=== PATIENT | male | born 1985 | race Caucasian/White ===

== ENCOUNTER 2021-08-04 00:50 | Observation (INO) ==
[2021-08-04] MEDS ORDERED: SODIUM CHLORIDE 0.9% 1000ML 1,000 ML IV STA (01:07)
[2021-08-04] MEDS ORDERED: KETOROLAC TROMETHAMINE 15 MG/ML VIAL IV STA (01:07)
[2021-08-04] MEDS ORDERED: ONDANSETRON INJ 2 MG/ML 2 ML VIAL IV STA (01:07)
[2021-08-04] MEDS ORDERED: MoRPHine SULFATE 4 MG/ML 1 ML CARP\\VIAL IV STA ×2 (01:07→02:34)
--- NOTE | 2021-08-04 01:15 | Emergency Department Note ---
Impression & Plan Acute appendicitis Evaluation by general surgery for further care ED Provider Note NAME: CYNDI EDMONDS AGE: 35 SEX: M ARRIVES VIA: Walk-In INFORMANT: Patient ED PROVIDER(S): Yaneth Barahona DO CHIEF COMPLAINT: Right-sided abdominal pain PLAN: Disposition: Further inpatient care with Dr. Callahan Condition: Stable MEDICAL DECISION MAKING: This is a 35-year-old male patient who presents to the emergency department with sudden onset of right-sided abdominal pain around 10 PM this evening. Patient required multiple doses of IV analgesia to maintain pain control. Urinalysis was unremarkable. Patient went for CT scan of the abdomen/pelvis which showed evidence of retrocolic appendicitis. I discussed the case with general surgery and they will evaluate for further management. Triage Nursing notes reviewed and agree with them. Vital Signs: reviewed and unremarkable Differential diagnosis: Testicular torsion, appendicitis, ruptured appendix, ureteral colic, pyelonephritis ER treatment provided: IV Zofran IV normal saline IV morphine x2 IV Toradol Diagnostics interpreted by me: Cardiac Monitoring: None Laboratory studies: See below Imaging studies: As per stat rad CT ABDOMEN & PELVIS Without Contrast: There is a retrocolic appendix which is distended up to 13 mm and shows inflammatory change in the surrounding fat. The findings are consistent with acute appendicitis. There are mildly prominent right mesenteric lymph nodes. No abnormal fluid. Small bilateral nonobstructing renal calculi. No hydronephrosis. No evidence of obstructing ureteral calculus. HPI: 35/M arrives for evaluation of right-sided abdominal pain. The patient developed sudden onset of right-sided abdominal pain and nausea around 10 PM this evening. He then developed some chills. The pain intensified. Patient states he has had a history of a kidney stone approximately 10 years ago. Patient is unsure what this pain could be related to. ROS: See above HPI for pertinent positives & negatives. A total of 10 systems reviewed and were otherwise negative. PAST MEDICAL HISTORY:See Below PAST SURGICAL HISTORY:None FAMILY HISTORY:See Below SOCIAL HISTORY:Patient lives with his family and works; he does not smoke HOME MEDICATIONS:Fluoxetine ALLERGIES:None VITALS:See Below PHYSICAL EXAMINATION: HEENT: Head - normocephalic and atraumatic. Pupils are equal, round, and reactive to light. Extraocular eye muscles are intact, and sclera are anicteric. Nose - moist nasal mucosa without discharge. Mouth - moist buccal mucosa. Oropharynx is nonerythematous and there is no tonsillar exudate or edema noted. Neck: Supple; no cervical lymphadenopathy Heart: Regular rate and rhythm. There is a normal S1 and S2 with no murmurs, clicks, or gallops appreciated. Lungs: Clear to auscultation bilaterally with no wheezes, rales, or rhonchi. Abdomen: Soft, moderate tenderness to palpation over the right upper and lower quadrants of the abdomen including the right CVA. The abdomen is nondistended with good bowel sounds. There are no palpable pulsatile masses or hepatosplenomegaly. There is no guarding, rigidity, or rebound noted. Extremities: No evidence of cyanosis, clubbing, or edema. There are easily palpable peripheral pulses. Skin: Pale, warm and dry with good turgor and no rashes. ED COURSE: Times/Reassessments: 0100 the patient was evaluated in room A10. A complete history and physical was performed. An IV lock was initiated and labs were drawn as above. A urine specimen was obtained and was dipped positive for only protein. The patient was given a liter of normal saline solution wide open along with 4 mg of IV Zofran, 30 mg of IV Toradol, and 4 mg of IV morphine. He will go for CT scan of the abdomen/pelvis. The patient was started on IV normal saline solution. Upon returning from radiology, the patient had recurrence of his right lower quadrant and right CVA pain. He was given a second dose of IV morphine. I reviewed the results of the CT scan and laboratory studies with the patient. I discussed the case with general surgery and they will evaluate for further management. Yaneth Barahona DO Past Med/Surg History Social History Smoking Status: Never smoker Preferred Language: Slovak Feels Safe at Home: Yes Allergies Allergies Allergy/AdvReac Type Severity Reaction Status Date / Time No Known Allergies Allergy Unverified 08/04/21 02:34 Home Meds Home Medications Medication Instructions Recorded Confirmed Al hyd-Mg tr-alg ac-sod bicarb 80 3 tab PO DIRECTED PRN 08/04/21 08/04/21 mg-20 mg chewable tablet acetaminophen 325 mg tablet 650 mg PO QID PRN 08/04/21 08/04/21 (Tylenol) fluvoxamine 150 mg 300 mg PO HS 08/04/21 08/04/21 capsule,extended release 24 hr Results & Data (ED) Vital Signs Vital Signs - 24 hr 08/04/21 00:53 08/04/21 01:41 08/04/21 02:58 Temperature 36.5 C Temperature Source Temporal Artery Scan Pulse Rate 98 H Pulse Rate [Left Radial] 98 H 82 Respiratory Rate 20 16 16 Respiratory Effort / Characteristics Non-Labored Non-Labored Respiratory Depth Normal Normal Normal Blood Pressure 109/71 Blood Pressure [Left Arm] 118/68 113/67 Blood Pressure Mean 83 Blood Pressure Mean [Left Arm] 84 82 Blood Pressure Position [Left Arm] Lying Pulse Oximetry 97 93 96 Oxygen Delivery Method Room Air Room Air Room Air Sepsis Recent Fever Within 48 Hours No Sepsis New/Unexplained Change in Mental Status N/A Sepsis Action Taken by Nursing No Action Required 08/04/21 03:38 08/04/21 04:29 Temperature Temperature Source Pulse Rate Pulse Rate [Left Radial] 77 Respiratory Rate 18 Respiratory Effort / Characteristics Respiratory Depth Blood Pressure Blood Pressure [Left Arm] 124/71 Blood Pressure Mean Blood Pressure Mean [Left Arm] 88 Blood Pressure Position [Left Arm] Pulse Oximetry 94 97 Oxygen Delivery Method Room Air Room Air Sepsis Recent Fever Within 48 Hours Sepsis New/Unexplained Change in Mental Status Sepsis Action Taken by Nursing Laboratory Data Result diagrams: 08/04/21 01:11 08/04/21 01:11 Lab Results 08/04/21 08/04/21 08/04/21 Range/Units 01:05 01:11 01:11 WBC 13.32 H (4.8-10.8) K/uL RBC 5.09 (4.7-6.1) M/uL Hgb 14.8 (14.0-18.0) g/dL Hct 42.6 (42-52) % MCV 83.7 (80-100) fL MCH 29.1 (25-34) pg MCHC 34.7 (32-36) g/dL RDW Std Deviation 37.7 (36.4-46.3) fL RDW Coeff of Nathan 12.4 (11.5-14.5) % Plt Count 175 (130-400) K/uL MPV 10.5 H (7.4-10.4) fL Immature Gran % (Auto) 0.1 % Neut % (Auto) 75.1 % Lymph % (Auto) 15.5 % [place] % (Auto) 8.2 % Eos % (Auto) 0.9 % Baso % (Auto) 0.2 % Neut # (Auto) 10.02 H (1.4-6.5) K/uL Lymph # (Auto) 2.06 (1.2-3.4) K/uL [place] # (Auto) 1.09 H (0.11-0.59) K/uL Eos # (Auto) 0.12 (0-0.5) K/uL Baso # (Auto) 0.02 (0-0.2) K/uL Immature Gran # (Auto) 0.01 (0.00-0.02) K/uL Sodium 137 (136-145) mmol/L Potassium 3.2 L (3.5-5.1) mmol/L Chloride 101 (98-107) mmol/L Carbon Dioxide 25 (21-32) mmol/L Anion Gap 11 (3-11) BUN 17 (6-23) mg/dl Creatinine 0.99 (0.6-1.4) mg/dl Est Cr Clr Drug Dosing 115.4 ml/min Est GFR ( Amer) 114.7 ml/min Est GFR (Non-Af Amer) 99.0 ml/min BUN/Creatinine Ratio 17.2 (10-20) Glucose 115 H (70-99(Fasting)) mg/dl Calcium 10.3 H (8.5-10.1) mg/dl Total Bilirubin 0.6 (0.2-1.0) mg/dl AST 17 (13-39) U/L ALT 29 (7-52) U/L Alkaline Phosphatase 95 (34-104) U/L Total Protein 7.5 (6.0-8.3) gm/dl Albumin 4.7 (3.4-5.0) gm/dl Globulin 2.8 (2.5-4.0) gm/dl Albumin/Globulin Ratio 1.7 (0.9-2) Lipase 40 (11-82) U/L Urine Color Yellow Urine Appearance Clear (Clear) Urine pH 5.0 (4.5-7.5) Ur Specific [place] 1.020 (1.000-1.030) Urine Protein Negative (Negative) Urine Glucose (UA) Negative (Negative) Urine Ketones Negative (Negative) Urine Blood Negative (Negative) Urine Nitrite Negative (Negative) Urine Bilirubin Negative (Negative) Urine Urobilinogen Negative (Negative) Ur Leukocyte Esterase Negative (Negative) SARS-CoV-2, RNA, NAAT (NEGATIVE) 08/04/21 Range/Units 03:50 WBC (4.8-10.8) K/uL RBC (4.7-6.1) M/uL Hgb (14.0-18.0) g/dL Hct (42-52) % MCV (80-100) fL MCH (25-34) pg MCHC (32-36) g/dL RDW Std Deviation (36.4-46.3) fL RDW Coeff of Nathan (11.5-14.5) % Plt Count (130-400) K/uL MPV (7.4-10.4) fL Immature Gran % (Auto) % Neut % (Auto) % Lymph % (Auto) % [place] % (Auto) % Eos % (Auto) % Baso % (Auto) % Neut # (Auto) (1.4-6.5) K/uL Lymph # (Auto) (1.2-3.4) K/uL [place] # (Auto) (0.11-0.59) K/uL Eos # (Auto) (0-0.5) K/uL Baso # (Auto) (0-0.2) K/uL Immature Gran # (Auto) (0.00-0.02) K/uL Sodium (136-145) mmol/L Potassium (3.5-5.1) mmol/L Chloride (98-107) mmol/L Carbon Dioxide (21-32) mmol/L Anion Gap (3-11) BUN (6-23) mg/dl Creatinine (0.6-1.4) mg/dl Est Cr Clr Drug Dosing ml/min Est GFR ( Amer) ml/min Est GFR (Non-Af Amer) ml/min BUN/Creatinine Ratio (10-20) Glucose (70-99(Fasting)) mg/dl Calcium (8.5-10.1) mg/dl Total Bilirubin (0.2-1.0) mg/dl AST (13-39) U/L ALT (7-52) U/L Alkaline Phosphatase (34-104) U/L Total Protein (6.0-8.3) gm/dl Albumin (3.4-5.0) gm/dl Globulin (2.5-4.0) gm/dl Albumin/Globulin Ratio (0.9-2) Lipase (11-82) U/L Urine Color Urine Appearance (Clear) Urine pH (4.5-7.5) Ur Specific [place] (1.000-1.030) Urine Protein (Negative) Urine Glucose (UA) (Negative) Urine Ketones (Negative) Urine Blood (Negative) Urine Nitrite (Negative) Urine Bilirubin (Negative) Urine Urobilinogen (Negative) Ur Leukocyte Esterase (Negative) SARS-CoV-2, RNA, NAAT NEGATIVE (NEGATIVE) Administered Medications Potassium Chloride/Sodium Chloride (Normal Saline W/20 Meq Kcl) 20 meq in 1,000 mls @ 100 mls/hr IV .Q10H [facility]; Protocol Stop: 09/03/21 04:02 Last Admin: 08/04/21 04:22 Dose: 100 mls/hr Documented by: [id number] Discontinued Medications Sodium Chloride (Nss 1000ml) 1,000 mls @ 999 mls/hr IV .Q1H1M STA Stop: 08/04/21 02:07 Last Infusion: 08/04/21 02:07 Dose: 0 mls/hr Documented by: [id number] Admin: 08/04/21 01:11 Dose: 999 mls/hr Documented by: [id number] Piperacillin Sod/Tazobactam (Sod 3.375 gm/ Dextrose) 100 ml in 115 mls @ 230 mls/hr IV NOW STA Stop: 08/04/21 04:32 Last Admin: 08/04/21 04:21 Dose: 230 mls/hr Documented by: [id number] Ketorolac Tromethamine (Ketorolac Tromethamine 15 Mg/Ml Vial) 30 mg IV NOW STA Stop: 08/04/21 01:08 Last Admin: 08/04/21 01:11 Dose: 30 mg Documented by: [id number] Morphine Sulfate (Morphine Sulfate 4 Mg/Ml 1 Ml Carp\Vial) 4 mg IV NOW STA Stop: 08/04/21 01:08 Last Admin: 08/04/21 01:11 Dose: 4 mg Documented by: [id number] Morphine Sulfate (Morphine Sulfate 4 Mg/Ml 1 Ml Carp\Vial) 4 mg IV NOW STA Stop: 08/04/21 02:35 Last Admin: 08/04/21 02:41 Dose: 4 mg Documented by: [id number] Ondansetron HCl (Ondansetron Inj 2 Mg/Ml 2 Ml Vial) 4 mg IV NOW STA Stop: 08/04/21 01:08 Last Admin: 08/04/21 01:11 Dose: 4 mg Documented by: [id number] Discharge Plan Visit Data Chief Complaint: Abdominal Pain Stated Complaint: ABDOMINAL PAIN ED Provider: Yaneth Barahona Discharge Problem: Acute appendicitis Forms Stand Alone Forms: [facility] Prescriptions Prescriptions: No Action acetaminophen [Tylenol] 325 mg Tablet 650 mg PO QID PRN (Reason: Pain) RF: 0 Chewable Antacid 80-20 mg Tablet,Chewable 3 tab PO DIRECTED PRN (Reason: gi-upset) RF: 0 fluvoxamine 150 mg capsule,extended release 24hr 300 mg PO HS RF: 0 Referrals Referrals: PCP,NO [Physician] - Discharge Problem: Acute appendicitis Qualifiers: Acute appendicitis type: unspecified acute appendicitis type Qualified Code(s): K35.80 - Unspecified acute appendicitis
[2021-08-04 01:24] LABS: Basophils # (auto) 0.02 K/uL (0-0.2); Basophils % (auto) 0.2 %; Eosinophils # (auto) 0.12 K/uL (0-0.5); Eosinophils % (auto) 0.9 %; Hematocrit (blood only) 42.6 % (42-52); Hemoglobin 14.8 g/dL (14.0-18.0); Immature Granulocytes # (auto) 0.01 K/uL (0.00-0.02); Immature Granulocytes % (auto) 0.1 %; Lymphocytes # (auto) 2.06 K/uL (1.2-3.4); Lymphocytes % (auto) 15.5 %; Mean Corpuscular Hemoglobin 29.1 pg (25-34); Mean Corpuscular Hgb Conc 34.7 g/dL (32-36); Mean Corpuscular Volume 83.7 fL (80-100); Mean Platelet Volume 10.5 fL (7.4-10.4); Monocytes # (auto) 1.09 K/uL (0.11-0.59); Monocytes % (auto) 8.2 %; Neutrophils # (auto) 10.02 K/uL (1.4-6.5); Neutrophils % (auto) 75.1 %; Platelet Count 175 K/uL (130-400); RDW Coefficient of Variation 12.4 % (11.5-14.5); RDW Standard Deviation 37.7 fL (36.4-46.3); Red Blood Count 5.09 M/uL (4.7-6.1); White Blood Count 13.32 K/uL (4.8-10.8)
[2021-08-04 01:29] LABS: Appearance Urine Clear (Clear); Bilirubin Urine Negative (Negative); Blood Urine Negative (Negative); Color Urine Yellow; Glucose Urine UA Negative (Negative); Ketones Urine Negative (Negative); Leukocyte Esterase Urine Negative (Negative); Nitrite Urine Negative (Negative); Protein Urine Negative (Negative); Urobilinogen Urine Negative (Negative)
[2021-08-04 01:41] LABS: Albumin Globulin Ratio 1.7 (0.9-2); Albumin Level 4.7 gm/dl (3.4-5.0); BUN Creatinine Ratio 17.2 (10-20); Bilirubin,Total 0.6 mg/dl (0.2-1.0); Calcium 10.3 mg/dl (8.5-10.1); Creatinine Clr Calc Pharmacy 115.4 ml/min; Est GFR (African American) 114.7 ml/min; Globulin 2.8 gm/dl (2.5-4.0); Potassium 3.2 mmol/L (3.5-5.1); Total Protein 7.5 gm/dl (6.0-8.3)
--- NOTE | 2021-08-04 03:59 | History & Physical Report ---
Date of Service August 04, 2021 Assessment & Plan (1) Acute appendicitis: Plan: Due to the patient's clinical presentation and imaging we will proceed as follows: He will be admitted to the hospital Analgesics will be provided Antiemetics be provided We will implement n.p.o. status We will hydrate him with IV fluids supplementing his potassium We will initiate antibiotics in the form of Zosyn A Covid test has been ordered we will follow for results of this We will plan on performing a laparoscopic, possible open appendectomy with Dr. Callahan on 08/04/2021. I have added this to Dr. Callahan schedule. I discussed the risks, benefits and expected postoperative course with the patient he wishes to proceed Additional recommendation will be made based on operative findings and his postoperative course SCDs were used for DVT prevention, no chemical means due to planned surgery He will be a level 1 full code History of Present Illness Chief Complaint: Abdominal pain Primary Care Provider: HAKAN Bustamante This is a 35-year-old male who presented to [facility] emergency department secondary abdominal pain that began at approximately 10:00 PM on 08/03/2021. The patient notes that the pain was initially in his upper abdomen near his umbilicus but is since shifted to the right lower quadrant. He did not seek medical attention initially because he thought it was merely indigestion/gas pain but as the pain did not remit he presented to the emergency department. He has reported nausea without vomiting. He had occasional chills but denies any fevers. He says he has never had any abdominal surgeries before. His most recent oral intake was at approximately 9:00 PM on 08/03/2021. The patient does not report any modifying factors or radiation of his pain. In the emergency department patient had labs and imaging which independent reviewed. CT scan of the abdomen and pelvis showed a retrocolic appendix which appeared distended up to 13 mm with inflammatory changes consistent with an acute appendicitis. There did not appear to be any abnormal abdominal fluid. Labs include a CBC her white blood cell count of slight elevation at 13.3. Hemoglobin, hematocrit, and platelet count were all normal. Chemistry profile showed sodium is 137. His potassium was 3.2. BUN and creatinine were 17 and 0.9 which were both normal. Urinalysis not indicative of infection. A Covid test is pending. At the time of my interview he is resting comfortably in bed in no distress Allergies Allergy/AdvReac Type Severity Reaction Status Date / Time No Known Allergies Allergy Unverified 08/04/21 02:34 Home Medications Medication Instructions Recorded Confirmed Type Al hyd-Mg tr-alg ac-sod bicarb 80 3 tab PO DIRECTED PRN 08/04/21 08/04/21 History mg-20 mg chewable tablet acetaminophen 325 mg tablet 650 mg PO QID PRN 08/04/21 08/04/21 History (Tylenol) fluvoxamine 150 mg 300 mg PO HS 08/04/21 08/04/21 History capsule,extended release 24 hr Past Med/Surg History Social History Smoking Status: Never smoker Second Hand Exposure: No; Do You Dip or Chew Tobacco: No; Hx Alcohol Use: No Hx Substance Use: No Preferred Language: Mohawk Communication Ability: Effective Beliefs That Will Affect Care: None Current Living Situation: Spouse Other Information That Helps Us Care for You: No Feels Safe at Home: Yes Safety Concerns: Feels Safe At This Time Assistive Devices: Glasses Review of Systems Constitutional: + chills; no fever Eyes: no diplopia Ear, Nose, Mouth, Throat: no ear pain Respiratory: no cough and no dyspnea Cardiovascular: no chest pain Gastrointestinal: + abdominal pain and + nausea; no vomiting Genitourinary: no dysuria Musculoskeletal: no back pain Integumentary: no rash Neurologic: no localized weakness Physical Exam Constitutional: well developed and well nourished; no acute distress Eyes: no conjunctival abnormality ENMT: Ears: no hearing impairment and no external ear abnormality Mouth: no oropharynx abnormality Neck: trachea midline Respiratory: normal respiratory effort; no respiratory distress and no labored breathing Cardiovascular: Rate/Rhythm: regular rate and regular rhythm Gastrointestinal (Abdomen): Abdomen is soft and nondistended. Patient is noted to have marked tenderness over the right lower quadrant at McBurney's point. Rovsing sign was noted to be positive. Slight rebound tenderness was noted. Musculoskeletal: No calf tenderness Skin: no rashes Neurologic: moves all extremities Psychiatric: A+Ox3, euthymic affect Results & Data Results & Data ([facility]) Vital Signs (Past 12 Hours) Vital Signs Temp Pulse Pulse Resp BP BP Pulse Ox 08/04/21 03:38 94 08/04/21 02:58 82 16 113/67 96 08/04/21 01:41 98 H 16 118/68 93 08/04/21 00:53 36.5 C 98 H 20 109/71 97 Supervising Physician Co-Signing Physician Notes I personally saw and evaluated the patient with Rakesh Sharpe PA-C and agree with the assessment and plan. 35-year-old male with acute appendicitis CT images and results personally reviewed consistent with acute appendicitis without perforation Admit to surgery keep n.p.o. give IV fluids To OR for laparoscopic appendectomy, possible open Consent obtained, risks discussed including bleeding, infection, leak, abscess PG Care Time/CCT Total # of Minutes Spent Total Time Spent with Patient: Total time spent is greater than 50% in coordination of care (as documented) at patient's floor/unit and/or counseling patient: Coding Level of Care Code INT OBSERVATION CARE 70M LVL 3 Diagnoses Acute appendicitis K35.80
[2021-08-04] MEDS ORDERED: NSS + 20MEQ KCL 20 MEQ/1,000 ML BAG IV SCH (04:03)
[2021-08-04] MEDS ORDERED: MoRPHine SULFATE 4 MG/ML 1 ML CARP\\VIAL IV PRN ×2 (04:03→11:30)
[2021-08-04] MEDS ORDERED: PIPERACILLIN/TAZOBACTAM 3.375 GM in DEXTROSE 5% 100 ML/100 ML BAG IV STA (04:03)
[2021-08-04] MEDS ORDERED: ONDANSETRON INJ 2 MG/ML 2 ML VIAL IV PRN ×2 (04:03→08:43)
[2021-08-04] MEDS ORDERED: ACETAMINOPHEN 1,000 MG/100 ML VIAL IV PRN (04:03)
[2021-08-04] MEDS ORDERED: PIPERACILL/TAZOBAC CONSULT ACTIVE PRN ×2 (05:08)
[2021-08-04 07:44] LABS: BUN Creatinine Ratio 14.6 (10-20); Calcium 9.5 mg/dl (8.5-10.1); Creatinine Clr Calc Pharmacy 110.9 ml/min; Est GFR (African American) 109.3 ml/min; Est GFR (Non-African American) 94.3 ml/min; Potassium 4.1 mmol/L (3.5-5.1)
--- NOTE | 2021-08-04 08:07 | CT Scan Report ---
CT abd pelvis wo con CLINICAL HISTORY: Right lower quadrant pain. COMPARISON STUDY: No previous studies for comparison. CT DOSE: 951.08 mGy.cm TECHNIQUE: Standard CT of the Abdomen and Pelvis was performed without IV contrast. The patient did not receive oral contrast. A dose lowering technique was utilized adhering to the principles of JASON Timmons. FINDINGS: Lung base: The lung bases are clear. Abdominal cavity: There is no evidence for abdominal mass, adenopathy or ascites. Liver: The liver is homogeneous in attenuation on these limited noncontrast images.. Spleen: The spleen is homogeneous in attenuation on these limited noncontrast images. Pancreas: The pancreas is homogeneous in attenuation on these limited noncontrast images. Gall Bladder: The gallbladder is well distended with no evidence for cholelithiasis, wall thickening or pericholecystic edema.. Adrenal glands: The adrenal glands are normal in size and attenuation on these limited noncontrast im ages. Kidneys: The kidneys are homogeneous in attenuation on these limited noncontrast images. There is no evidence for gross renal mass, calculus or hydronephrosis bilaterally. Bowel: There is a retrocecal appendix which is dilated measuring approximately 14 mm. Periappendiceal inflammatory changes are present in the findings represent acute appendicitis. There is no evidence for perforation or abscess. There is no free air. The remaining bowel loops are normally placed within the abdomen and pelvis without evidence for dil atation or obstruction. There is no evidence for mass lesion. Bladder: There is no evidence for focal bladder wall thickening, calculus or diverticulum. : There is no evidence for pelvic mass or adenopathy. Vasculature: There is no evidence for focal aneurysmal dilatation of the abdominal aorta. Osseous structures: There is no acute osseous pathology. IMPRESSION: 1. CT findings demonstrating acute appendicitis with swelling of the appendix and perinephric strandi ng. There is no evidence for perforation or abscess. 2. 2 to 3 mm nonobstructing bilateral renal calculi. ACT 112: Negative or not required by law. Electronically signed by: Wong Fowler M.D. 08/04/2021 8:06 AM
[2021-08-04] MEDS ORDERED: ROCURONIUM BROMIDE 10 MG/ML 5 ML VIAL IV ONE (08:25)
[2021-08-04] MEDS ORDERED: PROPOFOL IV EMULSION 10 MG/ML 20 ML VIAL IV ONE (08:25)
[2021-08-04] MEDS ORDERED: ONDANSETRON INJ 2 MG/ML 2 ML VIAL ONE (08:25)
[2021-08-04] MEDS ORDERED: fentaNYL citrate 100 MCG/2 ML VIAL ONE (08:25)
[2021-08-04] MEDS ORDERED: DEXAMETHASONE SOD INJ 4 MG/ML VIAL ONE (08:25)
--- NOTE | 2021-08-04 08:41 | Anesthesiology Consultation ---
Date of Service August 04, 2021 Assessment & Plan Chart Review Chart Review: Acceptable Risk for Surgery and Patient NOT seen in Pre Admission Testing Consults Requested none ASA ASA2 Proposed Anesthesia Anesthesia Type: General Risk / Benefits Reviewed With: PT / POA / Parent / Guardian, Accepts Plan and Informed Consent Obtained History Surgery Operation Date: 08/04/21 07:00 Proposed Procedures p Laparoscopic Appendectomy - Eyad Callahan, DO Height/Weight Height: 6 ft Weight: 88.6 kg Allergies Allergy/AdvReac Type Severity Reaction Status Date / Time No Known Allergies Allergy Unverified 08/04/21 02:34 Medications Home Medications Medication Instructions Recorded Confirmed Last Taken Al hyd-Mg tr-alg ac-sod bicarb 80 3 tab PO DIRECTED PRN 08/04/21 08/04/21 Unknown mg-20 mg chewable tablet acetaminophen 325 mg tablet 650 mg PO QID PRN 08/04/21 08/04/21 Unknown (Tylenol) fluvoxamine 150 mg 300 mg PO HS 08/04/21 08/04/21 Unknown capsule,extended release 24 hr Active Medications Generic Name Dose Route Start Last Admin Trade Name Freq PRN Reason Stop Dose Admin Potassium Chloride/Sodium Chloride 20 meq in 1,000 mls @ 100 mls/hr 08/04/21 04:03 08/04/21 04:22 Normal Saline W/20 Meq Kcl IV 09/03/21 04:02 100 mls/hr .Q10H GONZALO Administration Protocol NPO Date Last Intake of Fluids: 08/03/21 Time Last Intake of Fluids: 21:00 Date Last Intake of Solids: 08/04/21 Time Last Intake of Solids: 21:00 Past Medical History OCD Exercise / Class Metabolic Activity II 4-5 Yardwork/Stairs/Walk up hill Negative for chest pain or shortness of breath. Past Surgical History no prior history surgery Past Anesthesia History No Family Hx of Anesthesia Complications History of PONV No Hx of PONV and No Hx of Motion Sickness Social History Smoking Status: Never smoker Do You Dip or Chew Tobacco: No Hx Alcohol Use: No Hx Substance Use: No Review of Systems Denies vomiting - positive for nausea Physical Exam Vital Signs Last Vital Signs Temp 37.1 C 08/04/21 08:03 Pulse 73 08/04/21 08:03 Resp 20 08/04/21 08:03 BP 115/61 08/04/21 08:03 Pulse Ox 97 08/04/21 08:03 Constitutional not obese ENMT Mouth: no TMJ abnormality and oral opening not small Thyromental Distance: > or= 3.5 Finger Breadths Mallampati Class: II Neck normal visual inspection; neck extension not limited Respiratory normal respiratory effort Cardiovascular Rate/Rhythm: regular rate and regular rhythm Neurologic moves all extremities Psychiatric Orientation: alert and oriented x 3 Testing Laboratory Results 08/04/21 01:11 08/04/21 07:00 Urine Color Yellow 08/04/21 01:05 Urine Appearance Clear (Clear) 08/04/21 01:05 Urine pH 5.0 (4.5-7.5) 08/04/21 01:05 Ur Specific [place] 1.020 (1.000-1.030) 08/04/21 01:05 Urine Protein Negative (Negative) 08/04/21 01:05 Urine Glucose (UA) Negative (Negative) 08/04/21 01:05 Urine Ketones Negative (Negative) 08/04/21 01:05 Urine Nitrite Negative (Negative) 08/04/21 01:05 Ur Leukocyte Esterase Negative (Negative) 08/04/21 01:05
[2021-08-04] MEDS ORDERED: ATROPINE SULFATE 0.1 MG/ML 10ML SYR IV PRN (08:43)
[2021-08-04] MEDS ORDERED: PROMETHAZINE HCL 12.5 MG in SODIUM CHLORIDE 0.9% 50 ML IV PRN (08:43)
[2021-08-04] MEDS ORDERED: fentaNYL citrate 100 MCG/2 ML VIAL IV PRN (08:43)
[2021-08-04] MEDS ORDERED: ePHEDrine sulfate 50 MG/ML AMP IV PRN (08:43)
[2021-08-04] MEDS ORDERED: BUPIVACAINE 0.25% 30 ML VIAL ONE (08:55)
[2021-08-04] MEDS ORDERED: EPINEPHrine INJ 1 MG/ML AMP ONE (08:56)
[2021-08-04] MEDS: PIPERACILLIN/TAZOBACTAM 3.375 GM in DEXTROSE 5% 100 ML IV SCH ×2 (09:36→15:39)
[2021-08-04] MEDS ORDERED: NEOSTIGMINE METHYLSULFATE 1 MG/ML 10ML VIAL ONE (09:39)
[2021-08-04] MEDS ORDERED: GLYCOPYRROLATE 0.2 MG/ML VIAL ONE (09:39)
[2021-08-04] MEDS ORDERED: SUCCINYLCHOLINE CHLORIDE 20 MG/ML 10 ML VIAL IV ONE (09:40)
--- NOTE | 2021-08-04 10:05 | Post Operative Brief Note ---
PG Immediate Post Op with CF Date of Surgery August 04, 2021 Pre & Post Diagnosis Operation Date: 08/04/21 07:00 Pre-Op Diagnosis: Acute appendicitis Post-Op Diagnosis: Acute appendicitis without perforation I identified the patient and participated in the time-out.: Yes Procedure Operation Date: 08/04/21 07:00 Actual Procedures p Laparoscopic Appendectomy(Not Applicable) - Eyda Callahan DO Surgeon Eyad Callahan DO Floor Renovator Mason Stokes PA-C Estimated Blood Loss 5 Findings See Below Acutely inflamed dilated appendix without perforation Specimens Specimen Description: A. Appendix Drains Meeks Catheter Anesthesia Type General Complications none Disposition Disposition: Recovery Room
--- NOTE | 2021-08-04 10:07 | Operative Report ---
PG Post Operative Report Pre & Post Diagnosis Operation Date: 08/04/21 07:00 Pre-Op Diagnosis: Acute appendicitis Post-Op Diagnosis: Acute appendicitis without perforation I identified the patient and participated in the time-out.: Yes Procedure Operation Date: 08/04/21 07:00 Actual Procedures p Laparoscopic Appendectomy(Not Applicable) - Eyad Callahan DO Surgeon Eyad Callahan DO Waterside Worker Mason Stokes PA-C Estimated Blood Loss 5 Findings See Below Acutely inflamed dilated appendix without perforation Specimens Appendix to pathology Drains None Anesthesia Type General Complications none Disposition Disposition: Recovery Room Indications 35-year-old male with acute appendicitis Description of Procedure The patient was brought to the OR and placed in the supine position and SCD's placed. At this time he underwent general endotracheal anesthesia without incident. At this time a Meeks catheter was placed under sterile conditions. His abdomen was prepped and draped in the usual sterile fashion. He was given appropriate pre-operative antibiotics. A timeout was called, the procedure was verified as Laparoscopic appendectomy, possible open. Surgical, anesthesia and nursing teams agreed and the procedure was begun. After injection of 0.25% Marcaine with epinephrine, a supraumbilical incision was made using a #11 blade scalpel and carried down to the fascia with a hemostat. The abdomen was then elevated with towel clamps and entered using the Veress needle confirming position using the saline drop test. Pneumoperitoneum was established and 5mm trocar was placed. Laparoscope was introduced. No injury was seen from our entrance to the abdomen. At this time a 5mm suprapubic port and 12mm LLQ port were placed under direct visualization. The patient was placed in Trendelenburg and rotated to the left. At this time the appendix was visualized and the tip was freed and elevated toward the abdominal wall. The appendix appeared inflamed, dilated and edematous. A window was created in the mesoappendix at the base of the appendix. A 45mm purple load stapler was then fired across the base of the appendix which appeared healthy. The mesoappendix was then taken using Harmonic device. The appendix was then placed in an Endocatch bag and removed through the LLQ port site. Staple line was inspected and was intact. Hemostasis was complete. The 12 mm port was then closed at the fascial level using a 0 Vicryl suture using the suture passer. All ports were removed under direct visualization and no bleeding was noted. The abdomen was desufflated and the skin was closed using 4-0 Monocryl in a subcuticular fashion. Sterile dressings were applied. Meeks catheter was removed. The patient was then awakened from anesthesia having remained stable throughout the entire case and transported to PACU. All needle and sponge counts were correct x 2. The physician hardware sales assistant was present and scrubbed for the entire case. He was essential in positioning, prepping and draping the patient, driving the laparoscope, retraction and exposure, closure of the incisions and placement the dressings. I attest to the content of the Intraoperative Record and any orders documented therein. Any exceptions are noted below.
[2021-08-04] MEDS ORDERED: LACTATED RINGER'S 1,000 ML IV SCH (11:30)
[2021-08-04] MEDS ORDERED: oxyCODONE HCL IR 5 MG TAB (IMMEDIATE RELEASE) PO PRN (11:30)
[2021-08-04] MEDS ORDERED: MoRPHine SULFATE 2 MG/ML CARP IV PRN (11:30)
[2021-08-04] MEDS ORDERED: COUGH DROP (SUGAR FREE) LOZ 24 LOZ/1 BOX BUCCAL PRN (14:54)
--- NOTE | 2021-08-04 15:20 | Anesthesiology Progress Note ---
Date of Service August 04, 2021 Anesthesia Post Procedure Vital Signs Vital Signs: Temp Pulse Pulse Pulse Pulse Resp BP 08/04/21 14:46 36.7 C 68 16 08/04/21 13:29 37.0 C 60 16 08/04/21 12:32 36.4 C L 87 16 08/04/21 12:03 62 15 08/04/21 11:30 37.4 C 69 16 08/04/21 11:15 36.7 C 69 14 08/04/21 11:05 67 15 08/04/21 10:55 75 14 08/04/21 10:45 80 15 08/04/21 10:35 83 17 08/04/21 10:26 36.3 C L 106 H 16 08/04/21 08:03 37.1 C 73 20 08/04/21 07:46 37.1 C 68 16 08/04/21 05:12 36.5 C 70 16 08/04/21 04:29 77 18 08/04/21 03:38 08/04/21 02:58 82 16 08/04/21 01:41 98 H 16 08/04/21 00:53 36.5 C 98 H 20 109/71 BP Pulse Ox 08/04/21 14:46 114/67 97 08/04/21 13:29 115/71 96 08/04/21 12:32 103/62 97 08/04/21 12:03 113/63 94 08/04/21 11:30 129/71 95 08/04/21 11:15 131/71 94 08/04/21 11:05 134/69 95 08/04/21 10:55 140/65 95 08/04/21 10:45 148/71 H 100 08/04/21 10:35 147/80 H 100 08/04/21 10:26 156/85 H 96 08/04/21 08:03 115/61 97 08/04/21 07:46 111/62 97 08/04/21 05:12 116/65 96 08/04/21 04:29 124/71 97 08/04/21 03:38 94 08/04/21 02:58 113/67 96 08/04/21 01:41 118/68 93 08/04/21 00:53 97 Pain Intensity Right Flank: Pain Intensity: 10 Abdomen: Pain Intensity: 5 Transfer of Care Handoff Completed per policy Notes Mental Status: alert / awake / arousable and participated in evaluation Patient Amnestic to Procedure: Yes Nausea / Vomiting: adequately controlled Pain: adequately controlled Airway Patency, RR, SpO2: stable & adequate BP & HR: stable & adequate Hydration State: stable & adequate Anesthetic Complications: no major complications apparent and Pt Satisfied with anesthetic care
[2021-08-04] MEDS ORDERED: ACETAMINOPHEN 500 MG TAB PO PRN (15:30)
[2021-08-04] MEDS ORDERED: IBUPROFEN 600 MG TAB PO PRN (15:30)
[2021-08-04] MEDS ORDERED: fluvoxaMINE MALEATE 50 MG TAB PO SCH (21:00)
--- NOTE | 2021-08-05 08:40 | Discharge Summary ---
Date of Service August 04, 2021 Admission HPI Per Admitting Provider This is a 35-year-old male who presented to [facility] emergency department secondary abdominal pain that began at approximately 10:00 PM on 08/03/2021. The patient notes that the pain was initially in his upper abdomen near his umbilicus but is since shifted to the right lower quadrant. He did not seek medical attention initially because he thought it was merely indigestion/gas pain but as the pain did not remit he presented to the emergency department. He has reported nausea without vomiting. He had occasional chills but denies any fevers. He says he has never had any abdominal surgeries before. His most recent oral intake was at approximately 9:00 PM on 08/03/2021. The patient does not report any modifying factors or radiation of his pain. In the emergency department patient had labs and imaging which independent reviewed. CT scan of the abdomen and pelvis showed a retrocolic appendix which appeared distended up to 13 mm with inflammatory changes consistent with an acute appendicitis. There did not appear to be any abnormal abdominal fluid. Labs include a CBC her white blood cell count of slight elevation at 13.3. Hemoglobin, hematocrit, and platelet count were all normal. Chemistry profile showed sodium is 137. His potassium was 3.2. BUN and creatinine were 17 and 0.9 which were both normal. Urinalysis not indicative of infection. A Covid test is pending. At the time of my interview he is resting comfortably in bed in no distress Principal Diagnosis Acute appendicitis Discharge Exam Constitutional WD/WN, vitals as above Gastrointestinal (Abdomen) Inspection/Auscultation: + abdominal surgical incision (dry dressings) Percussion/Palpation: abdomen soft Discharge Data Allergies Allergy/AdvReac Type Severity Reaction Status Date / Time No Known Allergies Allergy Unverified 08/04/21 02:34 Consultations 08/04/21 03:44 ED Decision to Admit Stat Procedures Performed Operation Date: 08/04/21 07:00 Actual Procedures p Laparoscopic Appendectomy(Not Applicable) - Eyad Callahan DO Ordered Studies 08/04/21 01:10 CT abd pelvis wo con Urgent Hospital Course (1) Acute appendicitis: 35 y/o male presented to the ER with periumbilical abdominal pain localizing to RLQ. White count was 13,[address] was consistent with acute appendicitis. He was admitted to the surgical service overnight and was taken to the operating room in the morning for laparoscopic appendectomy. He was able to advance diet and tolerate oral analgesics during the day and was table for discharge home later that evening. Total Time Total Time Spent Total Time Spent (In Minutes): 15 Discharge Plan Discharge Items Patient Disposition: Home - Self-Care Reason For Visit: APPY Discharge Diagnosis: appendectomy Activity: As commented below Lifting: No more than 10 pounds Bathing Comment: can shower over bandages, remove them tomorrow Driving/Machine Use: Resume 3 days after discharge Non-emergency contact: Surgeon Call non-emergency contact if: you have any medication questions, your pain is not controlled, you have a fever, your temperature is above 101.5 and your wound has increased redness Follow-up/Referrals: Eyad Callahan DO [Physician] - (Please call to make an appt in 2 weeks) Tracie Clement CRNP [Primary Care Provider] - Diet: Regular Addtl Attending Provider Instructions: You can take Tylenol or ibuprofen in between oxycodone as needed for pain Pending Studies at Discharge: No Stand-Alone Forms: My [facility] [place] dakick, Smoking Cessation Medications and DC Order Prescriptions: New ibuprofen 600 mg tablet 600 mg PO Q6H PRN (Reason: pain) Qty: 30 RF: 0 Continued acetaminophen [Tylenol] 325 mg Tablet 650 mg PO QID PRN (Reason: Pain) RF: 0 Al hyd-Mg tr-alg ac-sod bicarb 80-20 mg Tablet,Chewable 3 tab PO DIRECTED PRN (Reason: gi-upset) RF: 0 fluvoxamine 150 mg capsule,extended release 24hr 300 mg PO HS RF: 0 Discharge Orders: Discharge Order (Routine); Ordered 08/04/21 Ordered By: Mason Krishnamurthy/Other Patient Handouts: Appendectomy, Surgery for Appendicitis Admission Data Admit Date/Time: 08/04/21 04:09 Attending Provider: Eyad Callahan Admit Provider: Eyad Callahan Primary Care Provider: Tracie Clement Other Providers: Eyad Callahan Other Interventions: Discharge Summary Assessment (RN) Last Done: 08/04/21 18:08 Coding Level of Care Code D/C DAY MANAGEMENT <30 MINS Diagnoses Acute appendicitis K35.80 Acute appendicitis type: unspecified acute appendicitis type
== END 2021-08-04 18:48 | disposition home or self-care (01) ==
LOC: ED 00:50 → 3N 00:50